=== PATIENT | female | born 1950 | race Caucasian/White ===

== ENCOUNTER 2017-08-06 08:28 | Day surgery (SDC) | payer MEDICARE, OTHER ==
[2017-08-06] MEDS ORDERED: Versed 2 MG/2 ML Injection IV ONE (08:29)
[2017-08-06] MEDS ORDERED: DIPRIVAN 200 MG/20 ML IV ONE (08:29)
[2017-08-06] MEDS ORDERED: Lactated Ringers 1,000 ML IV SCH (09:00)
--- NOTE | 2017-08-06 09:16 | HP ---
DATE OF SURGERY: 08/06/2017 HISTORY OF PRESENT ILLNESS: The patient is a 67 year-old female with lower esophageal pain radiating up to her throat. History of barium upper GI quite some time ago, some intermittent food stuck in the lower esophagus, increased reflux, intermittent lower esophageal pain radiating to throat in past. Question hiatal hernia. Some intermittent food stuck in her lower esophagus and occasional reflux. She is in need of upper endoscopy possible dilatation. She had a recent gallbladder work up that was negative according to the patient on reports available in the office. She had negative cardiac work up. PAST MEDICAL HISTORY: As noted above. PAST SURGICAL HISTORY: Vaginal hysterectomy in the past. Carpal tunnel and bunion surgery in the past. MEDICATIONS: Atorvastatin, omeprazole, PreserVision, Co-Q10, calcium, probiotic, aspirin. ALLERGIES: PENICILLIN. FAMILY HISTORY: Heart disease. SOCIAL HISTORY: No alcohol abuse. REVIEW OF SYSTEMS: Twelve systems reviewed per admission assessment. No chest pain or palpitations other systems negative or noncontributory as above and per preadmission questionnaire. PHYSICAL EXAMINATION: GENERAL: No acute distress. HEENT: Sclerae nonicteric. NECK: No JVD. CHEST: Equal excursion, nonlabored breathing. CVS: Regular rate and rhythm. ABDOMEN: Soft. No peritoneal signs. EXTREMITIES: No significant edema. NEURO: Alert, moving extremities symmetrically. IMPRESSION: She has some reflux and dysphagia, nausea and food getting stuck in the lower esophagus. I feel she would benefit from EGD possible biopsy, possible dilatation. Risks and benefits explained in detail including but not limited to bleeding or infection, risk of bowel injury or perforation possibly requiring open procedure, risk of missed or nondiagnosis or incomplete exam possibly requiring barium swallow, other studies or procedures, general risk of anesthesia or sedation, possibility should she have a tightened area that it will be dilated up and there is a possibility she may need to have it dilated again down the road. She also understands if there is more of a neurologic, function problem or mechanical found that dilatation will not improve her symptoms. She understands and agrees to the planned procedure and will proceed with EGD possible biopsy, possible dilatation as an outpatient.
[2017-08-06 15:59] VITALS: BP 126/71; PULSE 79; O2SAT 96
--- NOTE | 2017-08-07 10:44 | OP ---
SURGERY DATE/TIME: 08/06/2017 1059 PREOPERATIVE DIAGNOSES: 1) Dysphagia, need for upper endoscopy. 2) History of reflux. POSTOPERATIVE DIAGNOSES: 1) Very small slight hiatal hernia. 2) Distal esophageal narrowing above the very slight small hiatal hernia. 3) Mild gastritis. 4) Inflammation gastric site of gastroesophageal junction. PROCEDURES: 1) EGD with cold biopsy of small bowel to evaluate for celiac sprue. 2) Cold biopsy of the antrum to evaluate for Helicobacter pylori. 3) Cold biopsy of gastric site of inflammation at the gastric site of gastroesophageal junction. 4) Esophageal balloon dilatation distal esophageal narrowing (size 20 balloon). SURGEON: Dr. Jonathon Bhaena. ANESTHESIA: MAC. ESTIMATED BLOOD LOSS: Minimal. INDICATIONS: As noted above. Risks and benefits explained in detail and not limited to and consent obtained. DESCRIPTION OF PROCEDURE AND FINDINGS: The patient is taken to the endoscopy room. MAC anesthesia introduced. After official time out and no disagreement with planned procedure, bite block positioned. Video gastroscope easily passed down the oropharynx to the proximal esophagus. There was a narrowed area and area of spasm in distal esophagus. A very slight small slight hiatal hernia. The scope passed back in the stomach. It had some mild gastritis. The scope passed through the pylorus to the junction of the second and third portion of the duodenum. On withdrawal of the scope, she had been having some epigastric discomfort and some reflux do given flattening of the folds in the small bowel there was no yuliet duodenitis but given the appearance it was felt it warranted to test for celiac sprue. Cold biopsy taken. Good hemostasis noted. The scope pulled back into the stomach. She had some mild gastritis. Cold biopsy taken to evaluate for CLOtest for Helicobacter pylori. On retroflex there was a very slight hiatal hernia, very small. Otherwise no signs of any ulcers, masses or any other mucosal lesion. The scope pulled back. Gastroesophageal junction noted to be about 40 cm. Again, the Z-line was fairly crisp although there seemed to be increased reaction on the gastric side. This is probably just inflammation but for completeness to rule out any occult malignancy a cold biopsy is taken of this inflamed area. Otherwise the esophageal side other than the esophageal narrowing without any yuliet mass. The mucosa itself was grossly unremarkable, just some esophageal narrowing and spasm. As she is having symptoms of food getting stuck here it was felt this warranted dilatation. The remainder of the esophagus was grossly unremarkable. No signs of any obvious mucosal lesions. She did have some tertiary contractions of the esophagus but other than the distal esophageal narrowing, slight hiatal hernia, there are no signs of any obvious masses or mucosal lesions. Again as she is having symptoms with distal esophageal narrowed area, it was felt it should be dilated. Scope was then passed down in the stomach. The balloon catheter carefully inserted and pulled back up to the narrowed area in question where she was having symptoms and it was gradually dilated first to size 18 for 30 to 40 seconds and then size 19 for 30 to 45 seconds and then finally size 20 dilator for 2 minutes. The balloon was then decompressed and removed. The catheter passed back down the stomach and slowly and carefully withdrawn. The area was much more widely patent. There were no signs of any full thickness issues or injury secondary to dilatation. The scope is withdrawn. The patient tolerated the procedure well. There were no immediate complications. Findings discussed with the family out in the waiting area.
== END 2017-08-06 12:30 | disposition home or self-care (01) ==
LOC: SDC 08:28
PROVIDERS: ATTEND Surgery
PROC: 0DB88ZX Excision of Small Intestine, Via Natural or Artificial Opening Endoscopic, Diagnostic (ICD-10-PCS; principal; 2017-08-06)
PROC: 0DB48ZX Excision of Esophagogastric Junction, Via Natural or Artificial Opening Endoscopic, Diagnostic (ICD-10-PCS; 2017-08-06)
PROC: 0D718ZZ Dilation of Upper Esophagus, Via Natural or Artificial Opening Endoscopic (ICD-10-PCS; 2017-08-06)
DX: K44.9 Diaphragmatic hernia without obstruction or gangrene (principal); K22.2 Esophageal obstruction; K29.70 Gastritis, unspecified, without bleeding
CPT/HCPCS: 00740; 87081; C1726; J2250; J2704